=== PATIENT | male | born 1995 | race Caucasian/White ===

== ENCOUNTER 2025-01-24 09:45 | Outpatient (AMB) | payer MEDICAID, SELFPAY ==
--- NOTE | 2025-01-24 09:47 | A.OFFVIS_ITS ---
Vital Signs 01/24/25 09:57 Height 5 ft 4 in Weight 116 lb BMI 19.9 BP 117/64 Blood Pressure Location Lt brachial Position Sitting Pulse 75 Intake Visit Reasons: dehiscence of closure skin, skin lesion forehead Intake Note: Patient is seen in office for evaluation and treatment of skin lesion of the forehead. Pt c/o:has some kristen for aprox one year, denies pain, infection, or other concerns would like to have them removed ref 01/24/25 Stenocaptioner Required: No Accompanied by: Family/Other Allergies No Known Allergies Allergy (Verified 01/24/25 09:58) Medication List - Last Reconciled 01/24/25 by Hemant Gallo MD No Known Home Meds HPI HPI dehiscence of closure skin, skin lesion forehead: Details: 29-year-old male referred for removal of the skin kristen. He apparently had kristen placed on his forehead after he had a laceration a year ago in [place]. He said he was never able to see a doctor to have this removed. He otherwise denies any significant complaints. [facility] Medical History (Updated 01/24/25 @ 10:46 by Hemant Gallo MD) Stapled skin wound Social History Alcohol intake: never Patient Tobacco Use Status: Current everyday Tobacco user Review of Systems Const Denies chills and Denies fever(s) Card Denies chest pain, Denies dyspnea and Denies dyspnea on exertion Resp Denies cough, Denies dyspnea and Denies dyspnea on exertion GI Denies hematochezia and Denies change in bowel habits Denies hematuria and Denies difficulty urinating Musc Denies back pain and Denies limited range of motion Neuro Denies focal weakness and Denies convulsions Psych Denies depression and Denies mood swings Physical Exam Vital Signs: Last Vital Signs Pulse 75 01/24/25 09:57 BP 117/64 01/24/25 09:57 BMI result Body Mass Index 19.9 Const General: comfortable and no acute distress HEENT Other: Well healed scar on the forehead with [address], no signs of infection, no drainage Resp Effort & Inspection: normal respiratory effort Assessment & Plan Assessment & Plan (1) Stapled skin wound: Code(s): T14.8XXA - Other injury of unspecified body region, initial encounter Category: Medical Plan: He had this repair of a laceration with skin kristen done more than a year ago. The incision is well healed. I removed the skin kristen. He can follow up on a p.r.n. basis. Coding Level of Care Code New Pt Level 3 (48869) Diagnoses Stapled skin wound T14.8XXA
[2025-01-24 09:57] VITALS: BP 117/64; PULSE 75; BMI 19.9
== END 2025-01-24 10:30 | disposition home or self-care (01) ==
LOC: HO.HGS 09:46
PROVIDERS: PCP Internal Medicine; Visit Provider Surgery
DX: Z48.02 Encounter for removal of sutures (principal)
CPT/HCPCS: 99203

== ENCOUNTER → 2025-01-24 09:45 | Outpatient (BNVA) | payer MEDICAID, SELFPAY | PROVIDERS: PCP Internal Medicine; Visit Provider Surgery | DX: Z09 Encounter for follow-up examination after completed treatment for conditions other than malignant neoplasm (principal); T81.31XD Disruption of external operation (surgical) wound, not elsewhere classified, subsequent encounter | CPT/HCPCS: 99202 ==